=== PATIENT | female | born 1935 | race Caucasian/White ===

== ENCOUNTER 2022-07-31 11:24 | Emergency (ER) | payer OTHER ==
[2022-07-31 11:42] LABS: HEMATOCRIT 47.9 % (37.0-47.0); MANUAL DIFF REFLEX YES; MEAN CELL VOLUME 86.5 fl (81.0-99.0); MEAN CORPUSCULAR HGB 28.2 pg (27.0-31.0); MEAN CORPUSCULAR HGB CONC 32.6 g/dl (33.0-37.0); MEAN PLATELET VOLUME 9.8 fl (9.6-12.3); PLATELET COUNT AUTOMATED 221 10*3/uL (130-400); RED BLOOD COUNT 5.54 10*6/uL (4.10-5.10); RED CELL DISTRI WIDTH 14.6 % (0-14.5); WHITE BLOOD COUNT 13.5 10*3/uL (4.8-10.8)
[2022-07-31 11:53] LABS: ACT PARTIAL THROMBO TIME 22.1 SECONDS (20.0-32.1)
[2022-07-31 12:01] LABS: TOTAL CELLS COUNTED 100 #CELLS
[2022-07-31 12:03] LABS: PLATELET SUFFICIENCY NORMAL (NORMAL)
[2022-07-31 12:11] LABS: POTASSIUM 3.6 mmol/L (3.4-5.1); TOTAL PROTEIN 6.8 gm/dL (6.0-8.0)
[2022-07-31 13:09] LABS: BILIRUBIN Negative (Negative); BLOOD 1+ (Negative); CLARITY Cloudy (Clear); COLOR Yellow (Yellow); GLUCOSE Negative (Negative); KETONE Negative (Negative); LEUKO ESTERASE 2+ (Negative); NITRITE Positive (Negative); UROBILINOGEN 0.2 E.U./dl (0.0-1.0)
[2022-07-31 13:23] LABS: RBC 0-2 rbc/hpf (0-2); WBC 21-30 wbc/hpf (0-5)
[2022-07-31 13:24] LABS: BACTERIA 3+; EPITHELIAL CELLS 0-2
[2022-07-31] MEDS ORDERED: LEVOTHYROXINE50 MCG PO (13:53)
[2022-07-31] MEDS ORDERED: PRAVASTATIN SOD10 MG PO (13:53)
[2022-07-31] MEDS ORDERED: ASPIRIN ADULT L81 M1 PO (13:54)
[2022-07-31] MEDS ORDERED: D3-501250 MCG PO (13:54)
[2022-07-31] MEDS ORDERED: MYRBETRIQ25 M1 PO (13:55)
[2022-07-31] MEDS ORDERED: LOSARTAN-HCTZ1 EACH PO (13:55)
[2022-07-31] MEDS ORDERED: LOPRESSOR25 MG PO (14:49)
[2022-07-31] MEDS ORDERED: MACROBID100 M1 PO (14:53)
== END 2022-07-31 14:55 | disposition home or self-care (01) ==
LOC: ED 11:24
PROVIDERS: Emergency Medicine; Physician Assistant
DX: I49.3 Ventricular premature depolarization (principal); Z88.0 Allergy status to penicillin; Z88.1 Allergy status to other antibiotic agents; Z88.5 Allergy status to narcotic agent; Z88.2 Allergy status to sulfonamides; Z88.8 Allergy status to other drugs, medicaments and biological substances; Z79.899 Other long term (current) drug therapy